=== PATIENT | female | born 1980 | race African-American/Black ===

== ENCOUNTER 2022-09-12 16:47 | Emergency (ER) | payer MEDICAID, SELFPAY ==
[2022-09-12 16:56] VITALS: BP 145/91; PULSE 84; RESP 18; TEMP 36.7; O2SAT 98; BMI 26.6
--- NOTE | 2022-09-12 17:01 | ED.GENADULT ---
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 She feels tired and isn't eating well due to traveling and not having access to medications. MD complaint: elevated blood pressure and blood sugars 300/400 Onset (ago): week(s) (3) Radiation: non-radiation Severity: moderate Quality: dull Relieving factors: none Exacerbating factors: eating Associated symptoms: other (fatigue) Treatments prior to arrival: none Related Data Previous Rx's Medication Instructions Recorded amlodipine 5 mg tablet 5 mg PO DAILY #30 tabs 09/12/22 losartan 50 mg tablet 50 mg PO DAILY #30 tabs 09/12/22 metformin 1,000 mg tablet 1,000 mg PO BID #60 tabs 09/12/22 Allergies Allergy/AdvReac Type Severity Reaction Status Date / Time No Known Allergies Allergy Verified 09/12/22 16:58 Review of Systems Review of Systems: Constitutional : No Fever, No Chills, pos Fatigue ENT/Mouth : No sore throat, No Rhinorrhea Eyes: No Eye Pain, No Swelling, No Redness Cardiovascular : No Chest Pain, No SOB, No Dyspnea on Exertion Respiratory : No Cough, No Sputum Gastrointestinal : No Nausea, No Vomiting, No Diarrhea, No abdominal Pain Genitourinary : No Dysuria, No Urinary Frequency, No Hematuria, Musculoskeletal : No joint pain, No Myalgias, No Joint Swelling Skin : No Skin Lesions, No rash Neuro : No Weakness, No Numbness, No Dizziness, no Headache Psych : No Anxiety/Panic, No Depression All other systems reviewed and are negative [facility] Past Medical History Attestation statement: The following information was validated with the patient. Medical History Diabetes HTN (hypertension) Social History Social History (Updated 09/12/22 @ 19:42 by Tana Turner DO) Alcohol intake: current Alcohol intake frequency: holidays/special occasions only Alcohol type: beer and wine Patient Tobacco Use Status: Never used Tobacco Smoked in Last 30 Days: No Use of substances other than those prescribed or required for medical reasons: No Advance Directives: No Advance Directives Information Provided: No Patient : No Physical Exam ED Vital Signs: Vital Signs - 24 hr 09/12/22 16:56 09/12/22 19:38 Temperature 98.1 F 98.3 F Pulse Rate 84 80 Respiratory Rate 18 18 Blood Pressure 145/91 H 133/98 H Pulse Oximetry 98 97 Oxygen Delivery Method Room Air Room Air BMI result Body Mass Index 26.6 Appearance: Alert. Oriented X3. No acute distress. Eyes: Pupils equal, round and reactive to light. ENT: Pharynx normal. Neck: Normal inspection. Neck supple. CVS: Normal heart rate and rhythm. Pulses normal. Respiratory: No respiratory distress. Breath sounds normal. Abdomen: Soft and non-tender. Skin: Skin warm and dry. Normal skin color. Normal skin turgor. Extremities: No lower extremity edema. No calf ttp Neuro: Oriented X 3. No motor deficit. No sensory deficit. Course Course Course Narrative: This is an RME: Additional HPI, ROS, PE not included below will be deferred to primary provider. This is a 25-muee-vvn-female, with a hx of diabetes and HTN, presenting to the emergency department with complaint of tiredness, weakness, and sweats since today. The half-way took her blood sugar and they noted that it was high - 289. VSS. Plan: Basic labs, POC glucose ordered. Reevaluation(s) Reevaluation #1: SW involved has insurance and [employer]) Medical Decision Making Medical Decision Making [facility] Narrative: 42 yo female with hx of HTN, DM here with c/o elevated BP and blood sugar with minimal symptoms in light of poor diet, stress and lack of medications. I am going to have to involve SW for medications. Her labs are unremarkable I am not sure how she will pay for new medications. No acute emergent needs - just needs new meds. Differential Diagnosis Differential Diagnoses: The differential diagnosis associated with the presentation includes hyperglycemia, DM, DKA Consult Healthcare Provider Management of the patient was discussed with: Garment Steamer Lab Data [facility] Lab Attestation statement: I reviewed the patient's lab results. 09/12/22 17:12 09/12/22 17:12 Labs: Lab Results 09/12/22 09/12/22 09/12/22 Range/Units 17:12 17:12 19:41 WBC 8.3 (4.8-10.8) X10*3/uL RBC 5.29 (4.20-5.50) X10*6/uL Hgb 14.7 (12.0-16.0) g/dl Hct 44.0 (37.0-47.0) % MCV 83.2 (80.0-98.0) fL MCH 27.8 (27.0-33.0) pg MCHC 33.4 (31.0-35.0) g/dl RDW 13.4 (11.0-16.0) % Plt Count 323 (160-400) X10*3/uL MPV 11.7 (9.4-12.3) fL Immature Gran % (Auto) 0.2 (0.0-0.4) % Neut % (Auto) 55.5 (45-73) % Lymph % (Auto) 34.6 (20-40) % Coffee % (Auto) 7.0 (2-11) % Eos % (Auto) 1.9 (0-4) % Baso % (Auto) 0.8 (0-2) % Lymph # (Auto) 2.9 (1.2-4.9) X10*3/uL Coffee # (Auto) 0.6 (0.1-1.2) X10*3/uL Eos # (Auto) 0.2 (0.0-0.4) X10*3/uL Baso # (Auto) 0.1 (0.0-0.2) X10*3/uL Abs Immat Gran (auto) 0.02 (0.00-0.03) X10*3/uL Absolute Neuts (auto) 4.6 (2.0-8.3) x10*3/uL Absolute Nucleated RBC 0.000 (0.0-0.012) X10*3/uL Nucleated RBC % (auto) 0.0 (0.0-0.2) /100WBC Sodium 136 (135-145) mmol/L Potassium 4.6 (3.3-5.1) mmol/L Chloride 102 (96-108) mmol/L Carbon Dioxide 25 (22-29) mmol/L Anion Gap 14 (12-20) BUN 10 (9-16) mg/dL Creatinine 0.88 (0.5-1.4) mg/dL Estim Creat Clear Calc 86.1 Estimated GFR > 60 POC Glucose 268 H (60-115) mg/dL Random Glucose 360 H* (60-115) mg/dL Calcium 10.0 (8.4-10.2) mg/dL Total Bilirubin 0.5 (0.0-1.0) mg/dL Direct Bilirubin 0.1 (0.0-0.5) mg/dL AST 17 (5-31) U/L ALT 37 H (0-31) U/L Alkaline Phosphatase 126 H (39-117) U/L Total Protein 8.0 (6.5-8.0) g/dL Albumin 4.4 (3.5-5.0) g/dL Prescription Management I considered prescription management with: Other (HTN and diabetic medications) Chronic Conditions Patient?s care impacted by: Diabetes Social Determinants Patient?s care significantly limited by Social Determinants of Health including: Low income, Problems related to primary support group, Unemployment and Other Social Determinant of Health Discharge Plan Discharge Clinical Impression: Acute hyperglycemia Hypertension Qualifiers: Hypertension type: unspecified Qualified Code(s): I10 - Essential (primary) hypertension Patient Disposition: Home, Self-Care Instructions: Chronic Hypertension (ED), Diabetic Hyperglycemia (ED) Additional Instructions: deje de stan los 850 mg de metformina. Coma chadd buena dieta para diab?ticos lo mejor que pueda. regrese por fiebre, v?mitos, dolor de pecho o cualquier otra inquietud. stan los medicamentos seg?n lo prescrito. Prescriptions: New metformin 1,000 mg tablet 1,000 mg PO BID Qty: 60 1RF amlodipine 5 mg tablet 5 mg PO DAILY Qty: 30 1RF losartan 50 mg tablet 50 mg PO DAILY Qty: 30 1RF Referrals: Deborah Cheng CNP [Nurse Practitioner] - (any provider call to make appointment) Print Language: Chinese
[2022-09-12 17:22] LABS: MANUAL DIFF FLAG NO
[2022-09-12 17:47] LABS: Alanine Aminotransferase 37 U/L (0-31); Albumin Level 4.4 g/dL (3.5-5.0); Alkaline Phosphatase 126 U/L (39-117); Anion Gap 14 (12-20); Aspartate Amino Transferase 17 U/L (5-31); Bilirubin Direct 0.1 mg/dL (0.0-0.5); Bilirubin Total 0.5 mg/dL (0.0-1.0); Blood Urea Nitrogen 10 mg/dL (9-16); Carbon Dioxide 25 mmol/L (22-29); Chloride 102 mmol/L (96-108); Creatinine Clr Calc Pharmacy 86.1; Estimated Glomerular Filt Rate > 60; Glucose Random 360 mg/dL (60-115); Potassium 4.6 mmol/L (3.3-5.1); Sodium 136 mmol/L (135-145)
[2022-09-12 17:50] LABS: Basophils Absolute Auto 0.1 X10*3/uL (0.0-0.2); Basophils Percent Auto 0.8 % (0-2); Eosinophils Absolute Auto 0.2 X10*3/uL (0.0-0.4); Eosinophils Percent Auto 1.9 % (0-4); Hemoglobin 14.7 g/dl (12.0-16.0); Imm Gran Abs Auto 0.02 X10*3/uL (0.00-0.03); Imm Gran Pct Auto 0.2 % (0.0-0.4); Lymphocytes Absolute Auto 2.9 X10*3/uL (1.2-4.9); Lymphocytes Percent Auto 34.6 % (20-40); Mean Corpuscular HGB Conc 33.4 g/dl (31.0-35.0); Mean Corpuscular Hemoglobin 27.8 pg (27.0-33.0); Mean Corpuscular Volume 83.2 fL (80.0-98.0); Mean Platelet Volume 11.7 fL (9.4-12.3); Monocytes Absolute Auto 0.6 X10*3/uL (0.1-1.2); Neutrophils Absolute Auto 4.6 x10*3/uL (2.0-8.3); Neutrophils Percent Auto 55.5 % (45-73); Platelet Count 323 X10*3/uL (160-400); Red Blood Count 5.29 X10*6/uL (4.20-5.50); Red Cell Distribution Width 13.4 % (11.0-16.0); White Blood Count 8.3 X10*3/uL (4.8-10.8)
[2022-09-12 19:38] VITALS: BP 133/98; PULSE 80; RESP 18; TEMP 36.8; O2SAT 97
[2022-09-12 19:44] LABS: Glucose, Whole Blood 268 mg/dL (60-115)
--- NOTE | 2022-09-12 20:35 | MHC.CM.ED ---
Addendum entered by Mel Henderson 09/12/22 20:56: Pt's arranged an Uber for patient. Pt discharged. Original Note: CM met with patient at the request of Dr. Turner. project inspector used as patient is Wallisian speaking only. Patient [place] been [place] the [place]. Came from [facility] in [place]. Is in [place] on [place]. Her is from [place]. [place] ([phone]). They are living in an emergency mcfp at [facility] in [place] on [address]. Pt has paperwork for [employer], which was active on 09/03/2022. Verified by registration. Patient and have court date in 2024. Pt is a refugee. [place] [employer] given to patient. Referral to [facility] with instructions to call for an appointment. Explained that they speak Wallisian and have a pharmacy there. Dr. Turner will order meds electronically to [facility] on [address] in [place]. Pt is aware that pharmacy is down the street from her mcfp. Contact information given for [facility]. Instructed patient to use her paperwork for [employer], which will pay for the medicine. Also given [employer] cards. CM contact card given if patient has any concerns. Pt RN aware. Pt will be discharged home.
== END 2022-09-12 20:44 | disposition home or self-care (01) ==
PROVIDERS: Physician Assistant Medical; Emergency Provider Emergency Medicine
DX: E11.65 Type 2 diabetes mellitus with hyperglycemia (principal); I10 Essential (primary) hypertension; Z79.84 Long term (current) use of oral hypoglycemic drugs
CPT/HCPCS: 36415; 80048; 80076; 82947; 85025; 99283; 99284

== ENCOUNTER 2023-01-31 13:48 | Outpatient (REF) | payer MEDICAID, OTHER, SELFPAY ==
[2023-01-31 17:48] LABS: Alanine Aminotransferase 31 U/L (0-31); Albumin Level 4.4 g/dL (3.5-5.0); Alkaline Phosphatase 112 U/L (39-117); Anion Gap 12 (12-20); Aspartate Amino Transferase 18 U/L (5-31); Bilirubin Total 0.5 mg/dL (0.0-1.0); Blood Urea Nitrogen 11 mg/dL (9-16); Calcium 10.1 mg/dL (8.4-10.2); Carbon Dioxide 26 mmol/L (22-29); Chloride 104 mmol/L (96-108); Estimated Glomerular Filt Rate > 60; Potassium 4.4 mmol/L (3.3-5.1); Sodium 138 mmol/L (135-145); Total Protein 8.1 g/dL (6.5-8.0)
[2023-01-31 19:49] LABS: Glucose Random 350 mg/dL (60-115)
== END 2023-01-31 13:49 | disposition home or self-care (01) ==
LOC: HO.HHCL 13:48
PROVIDERS: Visit Provider Student in an Organized Health Care Education/Training Program
DX: E11.9 Type 2 diabetes mellitus without complications (principal); Z79.4 Long term (current) use of insulin
CPT/HCPCS: 36415; 80053

== ENCOUNTER 2023-03-20 16:21 | Outpatient (REF) | payer MEDICAID, OTHER, SELFPAY ==
[2023-03-21 19:23] LABS: C. trachomatis RNA TMA NOT DETECTED (NOT DETECTED); N. gonorrhoeae RNA TMA NOT DETECTED (NOT DETECTED)
== END 2023-03-20 16:22 | disposition home or self-care (01) ==
LOC: HO.CHCLNP 16:21
PROVIDERS: Visit Provider Family Medicine
DX: N89.8 Other specified noninflammatory disorders of vagina (principal)
CPT/HCPCS: 36415; 81513; 87491; 87591

== ENCOUNTER 2023-03-21 10:35 | Outpatient (REF) | payer MEDICAID, OTHER, SELFPAY ==
[2023-03-21 14:59] LABS: Cholesterol 103 mg/dL (<200); HDL Cholesterol 46 mg/dL (>40); LDL Cholesterol Calculated 48 mg/dL (<100); Triglycerides 47 mg/dL (<150)
[2023-03-21 15:17] LABS: TSH reflex Free T4 1.28 uIU/mL (0.32-4.0)
[2023-03-21 15:23] LABS: Creatinine Urine 253.99 mg/dL; Microalbum/Creatinine Ratio Ur 27.5 ug/mg cr (<30)
[2023-03-22 08:29] LABS: Follicle Stimulating Hormone 2.1 mIU/mL; Lutenizing Hormone 1.9 mIU/mL
[2023-03-24 03:55] LABS: HIV AB/AG Nonreactive (Nonreactive); HIV Num 1 0.06 S/CO (0.00-0.99); ~HepC Num1 0.08 S/CO (0.00-0.79); ~Hepatitis C Antibody Nonreactive (Nonreactive)
[2023-03-27 21:14] LABS: Estradiol Ultra Sensitive 91 pg/mL
== END 2023-03-21 10:36 | disposition home or self-care (01) ==
LOC: HO.CHCLDS 10:35
PROVIDERS: Visit Provider Family Medicine
DX: Z11.4 Encounter for screening for human immunodeficiency virus [HIV] (principal); Z13.9 Encounter for screening, unspecified; N97.9 Female infertility, unspecified; E11.9 Type 2 diabetes mellitus without complications; Z79.4 Long term (current) use of insulin
CPT/HCPCS: 36415; 80061; 82043; 82570; 82670; 83001; 83002; 84443; 86803; 87389

== ENCOUNTER 2023-03-27 15:39 | Outpatient (REF) | payer MEDICAID, SELFPAY ==
[2023-03-31 21:49] LABS: Anti-Mullerian Hormone-Female 1.59 ng/mL (0.01-2.99)
== END 2023-03-27 15:40 | disposition home or self-care (01) ==
LOC: HO.CHCLDS 15:39
PROVIDERS: Visit Provider Family Medicine
DX: N97.9 Female infertility, unspecified (principal)
CPT/HCPCS: 36415; 82166

== ENCOUNTER 2023-05-20 17:48 | Outpatient (REF) | payer MEDICAID, OTHER, SELFPAY ==
[2023-05-21 15:26] LABS: BV Int Neg Control Negative (Negative); BV Int Pos Control Positive (Positive)
[2023-05-25 11:04] LABS: HPV mRNA E6/E7 rflx Not Detected (Not Detected)
== END 2023-05-20 17:49 | disposition home or self-care (01) ==
LOC: HO.CHCLNP 17:48
PROVIDERS: Visit Provider Advanced Practice Midwife
DX: Z12.4 Encounter for screening for malignant neoplasm of cervix (principal); Z11.51 Encounter for screening for human papillomavirus (HPV); N89.8 Other specified noninflammatory disorders of vagina; R35.0 Frequency of micturition; R31.29 Other microscopic hematuria
CPT/HCPCS: 87086; 87480; 87510; 87624; 87660; 88142

== ENCOUNTER 2023-06-03 17:33 | Outpatient (REF) | payer OTHER, SELFPAY ==
[2023-06-03 18:38] LABS: Appearance Urine Clear; Color Urine Yellow; Glucose Urine UA >=1000 mg/dL (Negative); Leukocyte Esterase Urine Negative (Negative); Nitrite Urine Negative (Negative); PH 5.5 (5.0-9.0); Specific Gravity - Urine >= 1.030 (1.005-1.025); UMIC TRIGGER UACC YES; Urine Blood Negative (Negative); Urine Ketones Negative (Negative); Urine Protein Negative (Neg-Trace)
[2023-06-03 18:44] LABS: Bacteria Urine None Seen (None Seen); Hyaline Casts Urine 0-2 /LPF (0-2); RBC Urine 0-2 /HPF (0-2); Squamous Epithelial Cell Urine 0-2 /HPF (0-2); WBC Urine 0-5 /HPF (0-5)
== END 2023-06-03 17:34 | disposition home or self-care (01) ==
LOC: HO.LNP 17:33
PROVIDERS: Visit Provider Family Medicine
DX: R31.29 Other microscopic hematuria (principal)
CPT/HCPCS: 81001

== ENCOUNTER 2023-06-05 15:36 | Outpatient (AMB) | payer OTHER, SELFPAY ==
--- NOTE | 2023-06-05 15:37 | MHC.OFFVIS ---
Intake Vital Signs 06/05/23 15:44 Height 5 ft 6 in Weight 194 lb BMI 31.3 BP 127/81 Blood Pressure Location Rt brachial Position Sitting Pulse 92 Intake Visit Reasons: right axillary cyst Intake Note: This patient was referred by ARLETH Harris, for an assessment for right axillary cyst. Present for wks. Patient c/o; decreasing in size. Loss Prevention Lead Required: Yes Accompanied by: Self / Same As Patient Allergies No Known Allergies Allergy (Verified 06/05/23 15:42) HPI right axillary cyst HPI Details 42-year-old female referred for a cyst on the right axilla. She says she had an area of swelling, pain and tenderness on the right axilla about 2 weeks ago. She been doing warm compresses to the area and this has decreased significantly in size She says she currently does not have any pain, redness or tenderness. She denies any discharge. She has had no similar problems in the past. [facility] Medical History (Updated 06/05/23 @ 15:53 by Roberto Lynn MD) Obesity Epidermal cyst Umbilical hernia section wound complication Diabetes HTN (hypertension) Social History Alcohol intake: current Alcohol intake frequency: holidays/special occasions only Alcohol type: beer and wine Patient Tobacco Use Status: Never used Tobacco Review of Systems Const Denies chills and Denies fever(s) Card Denies chest pain, Denies dyspnea and Denies dyspnea on exertion Resp Denies cough, Denies dyspnea and Denies dyspnea on exertion GI Denies hematochezia and Denies change in bowel habits Denies hematuria Musc Denies back pain and Denies limited range of motion Neuro Denies focal weakness and Denies convulsions Psych Denies depression and Denies mood swings Physical Exam Const Other: Appears overweight General: comfortable and no acute distress Orientation/consciousness: patient oriented x3 Neck Neck: Yes no lymphadenopathy Resp Auscultation: clear to auscultation bilaterally Cardio Rhythm: regular rhythm GI Palpation (GI): Soft to palpation, nontender and no guarding Skin Other: Very faint residual induration on the right axilla, no fluctuance, no redness, no tenderness Neuro General: patient oriented x3 Assessment & Plan Assessment & Plan (1) Epidermal cyst: Code(s): L72.0 - Epidermal cyst Plan: She has what appears to be an epidermal cyst on the right axilla. This is currently barely palpable. This may have been inflamed 2 weeks ago. There is no fluctuance or significant induration. I explained to her that we do not need to proceed with any I&D nor any excision at this time. However, I told her that if this cyst persists or has symptoms down the line, we can consider doing an excision which can be done in the office under local anesthesia. She understands the plan and is comfortable with this. She says she will follow up on a p.r.n. basis. Coding Level of Care Code New Pt Level 2 (80868) Diagnoses Epidermal cyst L72.0
[2023-06-05 15:44] VITALS: BP 127/81; PULSE 92; BMI 31.3
== END 2023-06-05 15:52 | disposition home or self-care (01) ==
PROVIDERS: Visit Provider Surgery
DX: L72.0 Epidermal cyst (principal)
CPT/HCPCS: 99202

== ENCOUNTER → 2023-06-05 15:36 | Outpatient (BNVA) | payer OTHER, SELFPAY | PROVIDERS: Visit Provider Surgery | DX: L72.0 Epidermal cyst (principal) | CPT/HCPCS: 99202 ==

== ENCOUNTER 2023-10-27 17:44 | Outpatient (REF) | payer OTHER, SELFPAY | END 2023-10-27 17:45 | disposition home or self-care (01) | LOC: HO.CHCLNP 17:44 | PROVIDERS: Visit Provider Registered Nurse | DX: J02.9 Acute pharyngitis, unspecified (principal) | CPT/HCPCS: 87070 ==

== ENCOUNTER 2024-02-16 15:19 | Outpatient (AMB) | payer OTHER, SELFPAY ==
[2024-02-16 15:19] VITALS: BMI 31.0
--- NOTE | 2024-02-16 15:19 | MHC.OFFVIS ---
Vital Signs 02/16/24 15:19 Height 5 ft 6 in Weight 192 lb 0.009 oz BMI 31.0 Intake Visit Reasons: consult Nexplanon removal Intake Note: This patient presents for consult Nexplanon removal. Pt c/o; reports PCP unable to remove nexplanon in office. Outside Residential Sales Professional Required: Yes Outside Residential Sales Professional Language: Mechanical Process Engineer Services: Outside Residential Sales Professional Present (Diane) Outside Residential Sales Professional Name: Diane Information Interpreted: non-clinical & clinical Accompanied by: Self / Same As Patient Allergies No Known Allergies Allergy (Verified 02/16/24 15:21) Medication List - Last Reconciled 02/16/24 by Roberto Lynn MD amlodipine 5 mg PO DAILY losartan 50 mg PO DAILY metformin 1,000 mg PO BID HPI HPI consult Nexplanon removal: Details: 43-year-old female referred for removal of her Nexplanon implant. She says she had it done more than 2 years ago and she says she wants this removed. This was done in [facility] as she had live in the country before. She has no other complaints at this time. She has a known diabetic and also has hypertension. [facility] Medical History Nexplanon in place Obesity Epidermal cyst Umbilical hernia section wound complication Diabetes HTN (hypertension) Surgical History Surgical history unknown Social History Alcohol intake: current Alcohol intake frequency: holidays/special occasions only Alcohol type: beer and wine Patient Tobacco Use Status: Never used Tobacco Review of Systems Const Denies chills and Denies fever(s) Card Denies chest pain, Denies dyspnea and Denies dyspnea on exertion Resp Denies cough, Denies dyspnea and Denies dyspnea on exertion GI Denies hematochezia and Denies change in bowel habits Denies hematuria Musc Denies back pain and Denies limited range of motion Neuro Denies focal weakness and Denies convulsions Psych Denies depression and Denies mood swings Physical Exam Vital Signs: BMI result Body Mass Index 31.0 Const Other: Obese General: comfortable and no acute distress Orientation/consciousness: patient oriented x3 Neck Neck: Yes no lymphadenopathy Resp Auscultation: clear to auscultation bilaterally Cardio Rhythm: regular rhythm GI Palpation (GI): Soft to palpation, nontender and no guarding Neuro General: patient oriented x3 Extrem Other: Difficult to palpate for the implant on the right upper arm Assessment & Plan Assessment & Plan (1) Nexplanon in place: Code(s): Z97.5 - Presence of (intrauterine) contraceptive device Category: Social Hx Plan: She wants this Nexplanon implant removed. I explained the technique of removal of the Nexplanon implant under local anesthesia. I explained the risks including but not limited to bleeding, infections, hematoma, nerve injury, as well as the benefits and alternatives. She understands and wants to proceed Since the implant is difficult to palpate, I am going to send her for an ultrasound to linh this area. Once this is marked, she will come straight to the office so we can proceed with excision under local anesthesia here in the office that same day. She says she understands the plan. Orders: Orders US extremity nonvascular Today Z97.5 - Presence of (intrauterine) contraceptive device Coding Level of Care Code New Pt Level 3 (40246) Diagnoses Nexplanon in place Z97.5
== END 2024-02-16 15:42 | disposition home or self-care (01) ==
PROVIDERS: Visit Provider Surgery
DX: Z30.46 Encounter for surveillance of implantable subdermal contraceptive (principal)
CPT/HCPCS: 99213

== ENCOUNTER → 2024-02-16 15:19 | Outpatient (BNVA) | payer OTHER, SELFPAY | PROVIDERS: Visit Provider Surgery | DX: Z30.46 Encounter for surveillance of implantable subdermal contraceptive (principal) | CPT/HCPCS: 99212 ==

== ENCOUNTER 2024-02-26 15:12 | Outpatient (REF) | payer OTHER, SELFPAY ==
--- NOTE | ~2024-02-26 | US_ITS ---
EXAMINATION: US SOFT TISSUES, RIGHT UPPER ARM CLINICAL INFORMATION: Marking of skin for Nexplanon removal with skin marker. COMPARISON: None available. TECHNIQUE: Ultrasound images were obtained by the blood coordinator to indicate the area of concern in the upper right arm. The blood coordinator marked the Nexplanon implant as requested by referring physician. US/US extremity nonvascular IMPRESSION: Nexplanon implant in the upper right arm marked by the blood coordinator. Electronically signed by: Lavonne Small MD 03/28/2024 07:28 PM MIKAL ESCOTO
== END 2024-02-26 15:13 | disposition home or self-care (01) ==
LOC: HO.US 15:12
PROVIDERS: PCP Family Medicine; Visit Provider Surgery
DX: Z97.5 Presence of (intrauterine) contraceptive device (principal)
CPT/HCPCS: 11982; 76882

== ENCOUNTER 2024-02-26 15:44 | Outpatient (AMB) | payer OTHER, SELFPAY ==
--- NOTE | 2024-02-26 15:45 | A.OFFVIS_ITS ---
Intake Visit Reasons: nexplanon removal Intake Note: Office procedure: Nexplanon removal Sewing Machine Operator Floorperson Required: Yes Sewing Machine Operator Floorperson Services: Sewing Machine Operator Floorperson Present Sewing Machine Operator Floorperson Name: NicolasELIAHayley Information Interpreted: non-clinical & clinical Accompanied by: Self / Same As Patient Allergies No Known Allergies Allergy (Verified 02/26/24 15:45) HPI HPI nexplanon removal: Details: She is here for removal of her Nexplanon implant. She had an ultrasound done earlier this afternoon to have the area marked. [facility] Medical History Nexplanon in place Obesity Epidermal cyst Umbilical hernia section wound complication Diabetes HTN (hypertension) Surgical History Surgical history unknown Social History Alcohol intake: current Alcohol intake frequency: holidays/special occasions only Alcohol type: beer and wine Patient Tobacco Use Status: Never used Tobacco Office Procedures AMB Foreign Body Removal Details: She was in reclining position. The area of the Nexplanon implant in the medial aspect of the right upper arm was prepped and draped. This area had been previously marked using the ultrasound I infiltrated the planned line of incision with lidocaine 1%. I made a short incision with a blade 15 transversely. This was carried down through the full- thickness of the skin and subcutaneous fat. I palpated the area and I could feel the longitudinal fine tubular structure presenting the Nexplanon implant. I therefore gently dissected this area using the hemostat until was able to visualize this implant. I gently and bluntly dissected this with the hemostat and I was able to pull this out completely without difficulty. This was intact I closed the incision with full-thickness nylon 3-0 simple interrupted sutures. Dressings were applied. The procedure was completed. She tolerated the procedure well. There were no immediate complications. Foreign Body Removal Complex: [id number] body removal, complex Procedure code (CPT) selection complete Assessment & Plan Assessment & Plan (1) Nexplanon in place: Code(s): Z97.5 - Presence of (intrauterine) contraceptive device Category: Social Hx Plan: The Nexplanon implant was removed without difficulty. She was given wound care instructions. She will be seen for removal sutures. Coding Level of Care Code Procedure Only Diagnoses Nexplanon in place Z97.5 CPT Codes Details - Foreign body complex: [id number] body removal, complex ([id number])
== END 2024-02-26 16:06 | disposition home or self-care (01) ==
PROVIDERS: PCP Family Medicine; Visit Provider Surgery
DX: Z30.46 Encounter for surveillance of implantable subdermal contraceptive (principal)
CPT/HCPCS: 11982

== ENCOUNTER 2024-05-07 14:44 | Outpatient (REF) | payer MEDICAID, OTHER, SELFPAY ==
--- OUTSIDE RECORDS SUMMARY | 2024-05-07 14:46 | XMS_ITS | Encounter Summary ---
Author Organization [employer] Address [address] [place] [address] Care Team Providers Care Seed Core Operator Name Role Phone Yessica Ricketts MD Primary Care Provider [phone] Encounter Details Date Type Department Care Team (Late Contact Info) Description 04/14/2024 Telephone [facility] [address] [place] [address] Yessica Ricketts MD [address] [place], [place] [phone] Social History Tobacco Use Types Packs/Day Years Used Date Smoking Tobacco: Never Passive Smoke Exposure: Never Smokeless Tobacco: Never Alcohol Use Standard Drinks/Week Comments Yes 0 (1 standard drink = 0.6 oz pur e alcohol) Comments No Sex and Gender Information Value Date Recorded Sex Assigned at Female 01/31/2023 9:55 AM EST Legal Sex Female 12:33 PM EDT Gender Identity Female 01/31/2023 9:55 AM EST Sexual Orientation Don't know 01/31/2023 9: 55 AM EST documented as of this encounter Miscellaneous Notes * Telephone Encounter - Cristo Anderson - 04/14/2024 2:42 PM EST Patient was seen by art educator within the past 6 months and would benefit from a transition to the pharmacy CDTM program. Please send a referral for CDTM - Diabetes to ensure continuity of care. Thank you! documented in this encounter Plan of Treatment Upcoming Encounters Date Type Department Care Team (Late Contact Info) Description 05/13/2024 3:30 PM EST Clinical Support [facility] [address] [place] [address] Kemi Sparks, ETHEL [address] [place] [address] 06/10/2024 2:30 PM EDT Medication Management [facility] [address] [place] [address] Anyi Garcia PharmD [address] [place] [address] documented as of this encounter Visit Diagnoses Not on filedocumented in this encounter Care Teams Seed Core Operator Relationship Specialty Start Date End Date Yessica Ricketts MD [address] [place] [address] PCP - General Family Medicine 03/20/23 documented as of this encounter
--- OUTSIDE RECORDS SUMMARY | 2024-05-07 14:46 | XMS_ITS | Encounter Summary ---
Author Organization [employer] [facility] Address [address] [place] [address] Care Team Providers Care Financial Examiner Name Role Phone Yessica Ricketts MD Primary Care Provider [phone] Anyi Garcia PharmD Unavailable [phone] Encounter Details Date Type Department Care Team (Latest Contact Info) Description 05/06/2024 Travel Social History Tobacco Use Types Packs/Day Years [...] AM EST documented as of this encounter Plan of Treatment Upcoming Encounters Date Type Department Care Team (Late st Contact Info) Description 05/13/2024 3:30 PM EST Clinical Support [facility] DI[facility] [address] [place], [place] [phone] [place] [address] 06/10/2024 2:30 PM EDT Medication Management [facility] MED & PED[facility] [address] [place], [place] [phone] Anyi Garcia PharmD [address] [place] [address] documented as of this encounter Visit Diagnoses Not on filedocumented in this encounter Care Teams Financial Examiner Relationship Specialty Start Date End Date Yessica Ricketts MD [address] [place] [address] PCP - General Family Medicine 03/20/23 Anyi Garcia PharmD [address] [place] [address] Pharmacist Internal Medicine 05/06/24 documented as of this encounter
--- OUTSIDE RECORDS SUMMARY | 2024-05-07 14:46 | XMS_ITS | Encounter Summary ---
Author Organization [employer] [facility] Address [address] [place] [address] Care Team Providers Care Brake Operator Helper Name Role Phone Yessica Ricketts MD Primary Care Provider [phone] Encounter Details Date Type Department Care Team (Latest Contact Info) Description 04/15/2024 Travel Social History Tobacco Use Types Packs/Day [...] Description 05/13/2024 3:30 PM EST Clinical Support [facility] DIABETES/NTRN [address] [place] [address] [place] [address] 06/10/2024 2:30 PM EDT Medication Management [facility] MED & PEDS [address] [place] [address] Anyi Garcia PharmD [address] [place] [address] documented as of this encounter Visit Diagnoses Not on filedocumented in this encounter Care Teams Brake Operator Helper Relationship Specialty Start Date End Date Yessica Ricketts MD [address] [place] [address] PCP - General Family Medicine 03/20/23 documented as of this encounter
--- OUTSIDE RECORDS SUMMARY | 2024-05-07 14:46 | XMS_ITS | Encounter Summary ---
Author Organization [employer] Address [address] [facility] 7t [place] [address] Care Team Providers Care Briquette Operator Name Role Phone Yessica Ricketts MD Primary Care Provider [phone] Reason for Visit * Reason Comments Dental Exam Perio exam Encounter Details Date Type Department Care Team (Late st Contact Info) Description 04/07/2024 2:00 PM EST Office Visit [facility]AL [address] [place] [address] Nicholas Coyne DMD 505 [place] [address] Periodontal disease (Primary Dx) Social History Tobacco Use Types Packs/Day Years [...] AM EST documented as of this encounter Last Filed Vital Signs Vital Sign Reading Time Taken Comments Blood Pressure 140/90 04/07/2024 2:12 PM EST Pulse - - Temperature - - Respiratory Rate - - Oxygen Saturation - - Inhaled Oxygen Concentration - - Weight - - Height - - Body Mass Index - - documented in this encounter Progress Notes * Nicholas Coyne DMD - 04/07/2024 2:00 PM EST Dental procedures in this visit D0180 - COMPREHENSIVE PERIODONTAL EVALUATION - NEW OR ESTABLISHED PATIENT (Completed) Service provider: Nicholas Coyne DMD Billing provider: Nicholas Coyne DMD [id number] - ADJUNCTIVE GENERAL SERVICES - PROFESSIONAL VISITS - CASE PRESENTATION, SUBSEQUENT TO DETAILED AND EXTENSIVE TREATMENT PLANNING (Completed) Service provider: Nicholas Coyne DMD Billing provider: Nicholas Coyne DMD Patient ID: Phyllis Bee is a 43 y.o. female. Time Out: Timeout Date: 04/07/24 (perio exam), Timeout Time: 1411 Location: [facility] Tooth: all Procedure: Exam Verified the above with patient, habilitation assistant, and provider. Confirmed via patient's chart, intraorally and by radiographs. Quality Control Projectionist: Yes. Language: Somali. Quality Control Projectionist's Name: Leslee REGULATORY COMPLIANCE SPECIALIST Chief Complaint Patient presents with Dental Exam Perio exam Medical Hx: Vitals: Blood pressure 140/90. Patient presents for periodontal F/U HPI: SRPs and OHI completed 1 month ago, 03/10/24 Pt states she is doing better with oral hygiene Periodontal probing completed today Note multiple areas of deep probing depths, generalized BOP Note multiple areas where probing is deeper today than last visit with hygienist It is possible that calculus was hit when probing initially which gave artificially shallow results Informed pt of findings and discussed periodontal health. Recommend evaluation and treatment by vertical borer. Discussed possible need for open flap debridement, osseous recontouring, and apically positioned flap. Referral made to [facility]. Discussed with patient that treatment will be out of pocket and to inquire at office the costs. Pt understood. Radiographs to be sent via email to Perio office. Patient tolerated procedure well. All questions answered. Dismissed in good condition. NV: Recare Well Flow Operator: Leslee Real Dentist: Nicholas Coyne DMD documented in this encounter Plan of Treatment Upcoming Encounters Date Type Department Care Team (Late st Contact Info) Description 05/13/2024 3:30 PM EST Clinical Support [facility] DI[facility] [address] [place], [place] [phone] Kemi Sparks, RD [address] [place], [place] [phone] 06/10/2024 2:30 PM EDT Medication Management [facility] MED & PEDS [address] [place] [address] Anyi Garcia, RobbiD [address] [place] [address] documented as of this encounter Procedures Procedure Name Priority Date/Time Associated Diagnosis Comments COMPREHENSIVE PERIODONTAL EVALUATION - NEW OR ESTABLISHED PATIENT Routine 04/07/2024 2:00 PM EST Periodontal disease CASE PRESENTATION, DETAILED AND EXTENSIVE TREATMENT PLANNING Routine 04/07/2024 2:00 PM EST Periodontal disease documented in this encounter Visit Diagnoses Diagnosis Periodontal disease- Primary Unspecified gingival and periodontal disease documented in this encounter Care Teams Briquette Operator Relationship Specialty Start Date End Date Yessica Ricketts MD [address] [place] [address] PCP - General Family Medicine 03/20/23 documented as of this encounter
--- OUTSIDE RECORDS SUMMARY | 2024-05-07 14:46 | XMS_ITS | Encounter Summary ---
Author Organization [employer] Address [address] [facility] [address] 7[address] [place] [address] Care Team Providers Care Parts Chaser Name Role Phone Yessica Ricketts MD Primary Care Provider [phone] Encounter Details Date Type Department Care Team (Latest Contact Info) Description 04/15/2024 2:30 PM EST Clinical Support [facility] DIABETES/NTRN [address] [place], [place] [phone] Kemi Sparks RD [address] [place], [place] [phone] Class 1 obesity without serious comorbidity with body mass index (BMI) of 31.0 to 31.9 in adult, unspecified obesity type (Primary Dx); Type 2 diabetes mellitus without complication, with long-term current use of insulin ([facility]) Social History Tobacco Use Types Packs/Day Years [...] Sign Reading Time Taken Comments Blood Pressure - - Pulse - - Temperature - - Respiratory Rate - - Oxygen Saturation - - Inhaled Oxygen Concentration - - Weight 87.4 kg (192 lb 9.6 oz) 04/20/2024 1:05 P M EST Height 167.6 cm (5' 6 ) 04/20/2024 1:05 PM EST Body Mass Index 31.09 04/20/2024 1:05 PM EST documented in this encounter Progress Notes * Kemi Sparks RD - 04/15/2024 2:30 PM EST In Person Visit Medical Diagnosis: E66.9 Obesity E11.9, Z79.4 Type 2 diabetes mellitus without complication, with long-term current use of insulin Anthropometrics: Ht:5' 6 (1.676 m), Wt:192 lb 9.6 oz (87.4 kg), BMI: Body mass index is 31.09 kg/m??. Assessment: Patient (Pt) accepted nutrition education assessment appointment with RD. RD took Pt's weight. Weight revealed a slight increase of 2.6 pounds. [employer] chairman of the board, Valentín [id number] took 24 hour recall/ typical daily intake from Pt. Intake revealed Pt had swapped out rice for quinoa and having one cup instead of 1/3 cup as she wastaught. Pt thought that it was healthier that she could have more. RD explained that it is a grain and all grain cooked are 1/3 cup. Pt then realized that she was eating too much when she had quinoa.RD smiled and said, Yes. Pt agreed to only have 1/3 cup when she is having quinoa. In addition, Pt was not having EVOO on her all of her salads. RD highly suggested that Pt did. Along with EVOO, RD suggested to put some apple cider vinegar on the salad as well. Pt told RD that she has been using apple cider vinegar on her salads- sometimes. With these two changes, EVOO, apple cider vinegar and portion control quinoa amount, Pt should havefurther results and keep blood sugars down as well. A follow up appointment is scheduled in the third week of April 2024. 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 Food Intolerance: Dairy- lactose Food Preferences: Armenian yogurt, sweet cereals, breads, fruit cup/ canned, eggs, cheeses, sausages, beef, fish- tilapia, pork, liver, shrimp, Coke beverage, cherries, potatoes, lettuce, tomatoes, cucumbers, apples, passion fruit, ice cream, tomato sauces, gravies, rice, pasta, fried plantains, peanuts, pepperoni pizza, SF beverage= Ice Food Dislikes: Pt is not crazy about vegetables. Frequency of Eating Out/ Restaurant: Not a norm; pizza 1-2 x's per month Yakut food; 1 time or so a month Who Cooks?: Patient How much caffeine?: denies use; although, Pt does like the beverage Coke which has caffeine in it. Pt told RD that she has not been drinking Coke for sometime now. How much sugary beverages?: None; drinks sugar free beverages Diet History: Breakfast: Eg Water: 1+ cups Fruit: 1/2 cup Snack: None Water: 1 cup Lunch: Protein: 6+ oz. Green beans: 1/2 cup Potato: 1/2 cup Fresh salad: 3 cups Water or Ice (beverage drink): 1-2+ cups Snack: none Dinner: Quinoa: 1 cup Protein: 6+ oz. Fresh salad: 2-3 cups Water or Ice (beverage drink): 1-2 cups Snack: none Nutrition Diagnosis: NI-5.8.3 Inappropriate intake of types of carbohydrate, such as: rice, sugary cereals, pizza, ice cream to name few, related to food and knowledge deficit as evidence by 24 hour recall/ typical dailyintake, BMI >31, and blood sugars at 236 and a A1C% at 6.5 on 11/06/2023. Prior, 06/30/2023, A1C% at 12.1. Nutrition Intervention: RD suggested portion control amount for quinoa: 1/3 cup- cooked; add EVOO and apple cider vinegar on all salads. Pt agreed to work on these suggestions. Goals: Eat two carbohydrates for breakfast, lunch and dinner Eat one carbohydrate for mid-morning and mid-afternoon snacks Eat a fresh salad > one cup at both lunch and dinner Eat protein and fats as advised in meal plan Drink water as beverage of choice-> 6-8 glasses and/ or Crystal Light/ Sugar free Exercise at least 30 minutes per day Use extra virgin olive oil(EVOO) after cooking on foods-> don't cook with EVOO Monitoring and Evaluation: Indicator Criteria Adherence frequency of eating, portion controls, carbohydrate exchanges, protein intake Weight Loss BMI, exercise routine and frequency Glucose control A1C, blood sugars Lipid control Lipid panel Provider: Kemi Sparks RD, LDN documented in this encounter Plan of Treatment Upcoming Encounters Date Type Department Care Team (Late st Contact Info) Description 05/13/2024 3:30 PM EST Clinical Support [facility] DI[facility]ET[facility] [address] [place] [address] [place] [address] 06/10/2024 2:30 PM EDT Medication Management [facility] [address] [place], [place] [phone] Anyi Garcia PharmD [address] [place], [place] [phone] documented as of this encounter Visit Diagnoses Diagnosis Class 1 obesity without serious comorbidity with body mass index (BMI) of 31.0 to 31.9 in adult, unspecified obesity type- Primary Type 2 diabetes mellitus without complication, with long-term current use of insulin ([facility]) documented in this encounter Care Teams Parts Chaser Relationship Specialty Start Date End Date Yessica Ricketts MD [address] [place], [place] [phone] PCP - General Family Medicine 03/20/23 documented as of this encounter
--- OUTSIDE RECORDS SUMMARY | 2024-05-07 14:46 | XMS_ITS | Encounter Summary ---
Author Organization [employer] Address [address] [facility] 7t [place] [address] Care Team Providers Care Lands Resource Manager Name Role Phone Yessica Ricketts MD Primary Care Provider [phone] Reason for Referral * Consultation (Routine) - Authorized Specialty Diagnoses / Procedures Referred By Contac t Referred To Contact Pharmacy Diagnoses Type 2 diabetes mellitus without complication, with long-term current use of insulin (CMS/HCC) Glenny Arreola MD [address] [place] [address] Phone: tel: fax: Referral ID Status Reason Start Date Expiration Date Visits Requested Visits Authorized [id number] Authorized Consult and Treat 04/19/2024 04/19/2025 6 6 Encounter Details Date Type Department Care Team (Late st Contact Info) Description 04/19/2024 Orders Only [facility] [address] [place] [address] Glenny Arreola MD [address] [place], [place] [phone] Type 2 diabetes mellitus without complication, with long-term current use of insulin (CMS/HCC) (Primary Dx) Social History Tobacco Use Types [...] Description 05/13/2024 3:30 PM EST Clinical Support [facility] DIABETES/NTRN 505 [place] [address] Kemi Sparks, RD 230 [place] [address] 06/10/2024 2:30 PM EDT Medication Management [facility] MED & PEDS [address] [place], [place] [phone] Anyi Garcia PharmD [address] [place], [place] [phone] Scheduled Referrals Name Type Priority Associated Diagnoses Orde r Schedule Referral to Pharmacy CDTM Outpatient Referral Routine Type 2 diabetes mellitus without complication, with long-term current use of insulin (CMS/HCC) Ordered: 04/19/2024 documented as of this encounter Visit Diagnoses Diagnosis Type 2 diabetes mellitus without complication, with long-term current use of insulin (CMS/HCC)- Primary documented in this encounter Care Teams Lands Resource Manager Relationship Specialty Start Date End Date Yessica Ricketts MD [address] [place], [place] [phone] PCP - General Family Medicine 03/20/23 documented as of this encounter
--- OUTSIDE RECORDS SUMMARY | 2024-05-07 14:46 | XMS_ITS | Encounter Summary ---
Author Organization [employer] Address [address] [facility] [address] 7[address] [place] [address] Care Team Providers Care Automatic Wheel Line Operator Name Role Phone Yessica Ricketts MD Primary Care Provider [phone] Encounter Details Date Type Department Care Team (Late Contact Info) Description 04/14/2024 Telephone [facility] MEDICINE [address] [place], [place] [phone] Yessica Ricketts MD [address] [place], [place] [phone] Social History Tobacco Use Types Packs/Day Years [...] Telephone Encounter - Cristo Anderson - 04/14/2024 2:40 PM EST Patient was seen by health educator within the past 6 months and would benefit from a transition to the pharmacy CDTM program. Please send a referral for CDTM - Diabetes to ensure continuity of care. Thank you! documented in this encounter Plan of Treatment Upcoming Encounters Date Type Department Care Team (Late Contact Info) Description 05/13/2024 3:30 PM EST Clinical Support [facility] DIABETES/NTRN [address] [place], [place] [phone] Kemi Sparks, ETHEL [address] [place] [address] 06/10/2024 2:30 PM EDT Medication Management [facility] MED & PEDS [address] [place] [address] Anyi Garcia PharmD 230 [place] [address] documented as of this encounter Visit Diagnoses Not on filedocumented in this encounter Care Teams Automatic Wheel Line Operator Relationship Specialty Start Date End Date Yessica Ricketts MD [address] [place] [address] PCP - General Family Medicine 03/20/23 documented as of this encounter
--- OUTSIDE RECORDS SUMMARY | 2024-05-07 14:46 | XMS_ITS | Encounter Summary ---
Author Organization [employer] Address [address] [facility] [address] 7t [place] [address] Care Team Providers Care Promotions Executive Producer Name Role Phone Yessica Ricketts MD Primary Care Provider [phone] Encounter Details Date Type Department Care Team ([facility] Contact Info) Description 04/20/2024 Telephone [facility] MEDICINE [address] [place] [address] Yessica Ricketts MD [address] [place], [place] [phone] Social History Tobacco Use Types Packs/Day Years [...] * Telephone Encounter - Cristo Anderson - 04/20/2024 10:24 AM EST Pharmacy [facility] attempted outreach call on 04/20/24 for CDTM - Diabetes appointment; however, unable to reach patient. LVM for patient to contact Cristo Anderson at [phone]. documented in this encounter Plan of Treatment Upcoming Encounters Date Type Department Care Team (Late Contact Info) Description 05/13/2024 3:30 PM EST Clinical Support [facility] DIABETES/NTRN [address] [place], [place] [phone] Kemi Sparks, ETHEL [address] [place] [address] 06/10/2024 2:30 PM EDT Medication Management [facility]ED[facility] [address] [place] [address] Anyi Garcia PharmD [address] [place] [address] documented as of this encounter Visit Diagnoses Not on filedocumented in this encounter Care Teams Promotions Executive Producer Relationship Specialty Start Date End Date Yessica Ricketts MD [address] [place] [address] PCP - General Family Medicine 03/20/23 documented as of this encounter
--- OUTSIDE RECORDS SUMMARY | 2024-05-07 14:47 | XMS_ITS | Encounter Summary ---
Author Organization [employer] Address [address] [facility] 7t [place] [address] Care Team Providers Care Die Casting Machine Setter Name Role Phone Yessica Ricketts MD Primary Care Provider [phone] Anyi Garcia PharmD Unavailable [phone] Reason for Visit * Reason Comments Med Refill Encounter Details Date Type Department Care Team ([facility] st Contact Info) Description 09/30/2023 Refill [facility] [address] [place], [place] [phone] Debbie Luna MD [address] [place], [place] [phone] Social History Tobacco Use Types Packs/Day Years Used Date Smoking Tobacco: Never Passive Smoke Exposure: Never Smokeless Tobacco: Never Comments No Sex and Gender Information Value Date Recorded Sex Assigned at Female 01/31/2023 9:55 AM EST Legal Sex Female 12:33 PM EDT Gender Identity Female 01/31/2023 9:55 AM EST Sexual Orientation Don't know 01/31/2023 9: 55 AM EST documented as of this encounter Miscellaneous Notes * Telephone Encounter - Elier Montes - 10/03/2023 2:56 PM EDT Tc from patient requesting status in regards to the message below * Telephone Encounter - Lise Arroyo - 10/01/2023 3:37 PM EDT Tc from pt requesting a refill for losartan (Cozaar) 100 MG tablet documented in this encounter Plan of Treatment Upcoming Encounters Date Type Department Care Team (Late st Contact Info) Description 05/13/2024 3:30 PM EST Clinical Support [facility] DIABETES/NTRN [address] [place] [address] Kemi Sparks, ETHEL [address] [place] [address] 06/10/2024 2:30 PM EDT Medication Management [facility] MED & PEDS [address] [place], [place] [phone] Anyi Garcia, PharmD 230 [place] [address] documented as of this encounter Visit Diagnoses Not on filedocumented in this encounter Care Teams Die Casting Machine Setter Relationship Specialty Start Date End Date Yessica Ricketts MD [address] [place] [address] PCP - General Family Medicine 03/20/23 Anyi Garcia, PharmD [address] [place] [address] Pharmacist Internal Medicine 05/06/24 documented as of this encounter
--- OUTSIDE RECORDS SUMMARY | 2024-05-07 14:47 | XMS_ITS | Encounter Summary ---
Author Organization [employer] Address [address] [facility] [address] 7t [place] [address] Care Team Providers Care Turner Machine Operator Name Role Phone Yessica Ricketts MD Primary Care Provider [phone] Anyi Garcia PharmD Unavailable [phone] Reason for Visit * Reason Onset Date Comments Medication Question 06/05/2023 Encounter Details Date Type Department Care Team ([facility] st Contact Info) Description 06/05/2023 Telephone [facility] MEDICINE [address] [place] [address] Yessica Ricketts MD [address] [place], [place] [phone] Medication Question Social History Tobacco Use Types Packs/Day Years [...] encounter Miscellaneous Notes * Telephone Encounter - Digna Christianson RN - 06/11/2023 2:35 PM EDT Placed call to [facility] pharmacy regarding message below. Pharmacy states insurance is not covering Basaglar and will only accept Lantus Solostar. Placed call to [facility] pharmacy who said they received the lantus Solostar rx and is ready for sheepskin pickler. LVM to pt instructing that [facility] pharmacy has insulin rx ready for sheepskin pickler. Pt to f/u PRN. * Telephone Encounter - Mireya Tim 06/11/2023 10:09 AM EDT Tc from pt calling in regards to message above. States she communicated with pharmacy and was told they do not have insulin. Pt is working, would like a call after 3 PM. Please contact pt at [phone] (Indian) * Telephone Encounter - Wing Deric RN - 06/05/2023 4:34 PM EDT Tc to pt regarding refill using [employer] [place], [place] [id number]. Pt will try to sheepskin pickler refill today and will call back if there is a problem. Pt verbalizes understanding and agreement with plan. * Telephone Encounter - Agustin Harrell - 06/05/2023 4:18 PM EDT Pt returning call * Telephone Encounter - Wing Deric RN - 06/05/2023 10:50 AM EDT Tc to [facility] pharmacy. Refill was ordered. Used [employer] [place], [place] [id number], unable to reach pt at [phone]. Inspector Mult[employer] Lens left message for pt to call back. Tried [phone], someone pickedup but then hung up. * Telephone Encounter - Elier Montes - 06/05/2023 10:00 AM EDT Tc from patient calling to inform the Provider the medication insulin glargine (Basaglar KwikPen) 100 UNIT/ML pen will not be filled due to the pharmacy does not have in stock documented in this encounter Plan of Treatment Upcoming Encounters Date Type Department Care Team (Late st Contact Info) Description 05/13/2024 3:30 PM EST Clinical Support [facility] DIABETES/NTRN [address] [place] [address] [place] [address] 06/10/2024 2:30 PM EDT Medication Management [facility] MED & PEDS [address] [place], [place] [phone] Anyi Garcia PharmD [address] [place] [address] documented as of this encounter Visit Diagnoses Not on filedocumented in this encounter Care Teams Turner Machine Operator Relationship Specialty Start Date End Date Ysesica Ricketts MD [address] [place] [address] PCP - General Family Medicine 03/20/23 Anyi Garcia PharmD [address] [place] [address] Pharmacist Internal Medicine 05/06/24 documented as of this encounter
--- OUTSIDE RECORDS SUMMARY | 2024-05-07 14:47 | XMS_ITS | Encounter Summary ---
Author Organization [employer] Address 75 [facility] 7t [place] [address] Care Team Providers Care Diesel Fleet Mechanic Name Role Phone Yessica Ricketts MD Primary Care Provider [phone] Anyi Garcia PharmD Unavailable [phone] Reason for Visit * Reason Comments Med Refill Encounter Details Date Type Department Care Team (Late Contact Info) Description 10/03/2023 Refill [facility] [address] [place], [place] [phone] Debbie Luna MD [address] [place], [place] [phone] Social History Tobacco Use Types Packs/Day Years [...] Description 05/13/2024 3:30 PM EST Clinical Support [facility] DIABETES/NTRN [address] [place] [address] [place] [address] 06/10/2024 2:30 PM EDT Medication Management [facility] MED & PEDS [address] [place] [address] Anyi Garcia, PharmD [address] [place] [address] documented as of this encounter Visit Diagnoses Not on filedocumented in this encounter Care Teams Diesel Fleet Mechanic Relationship Specialty Start Date End Date Yessica Ricketts MD [address] [place] [address] PCP - General Family Medicine 03/20/23 Anyi Garcia PharmD [address] [place] [address] Pharmacist Internal Medicine 05/06/24 documented as of this encounter
--- OUTSIDE RECORDS SUMMARY | 2024-05-07 14:47 | XMS_ITS | Clinical Summary ---
Author Organization [employer] Address [address] [facility] [address] [place] [address] Care Team Providers Care Heater Operator Helper Name Role Phone Yessica Ricketts MD Primary Care Provider [phone] Anyi Garcia PharmD Unavailable [phone] Allergies No known active allergies Medications Blood Glucose Monitoring Suppl (Blood Glucose Monitor System) w/Device kitIndications:T ype 2 diabetes mellitus without complication, with long-term current use of insulin (CMS/HCC) 1 Units 2 times daily. Please provide freestyle 1 kit Active dulaglutide (Trulicity) 4.5 MG/0.5ML solution pen-injectorIndi cations:Type 2 diabetes mellitus without complication, with long-term current use of insulin (CMS/HCC) Inject 4.5 mg under the skin 1 (one) time per week. 4 each Active metFORMIN (Glucophage) 1000 MG tablet Take 1 tablet (1,000 mg) by mouth in the evening. 90 tablet 3 024 2024 Active ammonium lactate (Amlactin) 12 % cream APPLY TOPICALLY TO THE AFFECTED AREA(S) EVERY DAY DIRECTED FOR DRY SKIN 385 g Active glucose blood (FREESTYLE LITE) test strip USE DIRECTED TO TEST BLOOD SUGAR TWICE DAILY AT NOON AND IN THE EVENING 100 strip 11 Active Lancets (Unilet Micro-Thin 33G) misc USE DIRECTED TO TEST BLOOD SUGAR TWICE DAILY AT NOON AND IN THE EVENING 100 each Active Additional Information Patient not taking.Reported on 04/07/2024 multivitamin () 27-0.8 MG tablet Take 1 tablet by mouth Once per day. 30 tablet 11 Active Alcohol Swabs 70 % pads Use to test blood sugar BID times daily 100 each 11 024 Active Additional Information Patient not taking.Reported on 04/07/2024 NIFEdipine XL (Procardia XL) 60 MG 24 hr tabletIndication s:Hypertension, unspecified type Take 1 tablet (60 mg) by mouth Once per day. Do not crush, chew, or split. 90 tablet 3 025 Active etonogestrel-elu ting 68 mg contraceptive implantIndicatio ns:Contraceptive Therapy 1 each by Implant route 1 (one) time. Inserted at outside office 023 2024 Discontinued(M ed list cleanup (will not trigger notification to Pharmacy)) Lancets misc Use to test blood sugar BID times daily 100 each 024 2024 Discontinued(D uplicate order (will not trigger notification to Pharmacy)) Blood Glucose Monitoring Suppl ([employer] Lulu Lite) w/Device kit Use to test blood sugar BID 1 kit 024 2024 Discontinued(D uplicate order (will not trigger notification to Pharmacy)) pen needle 32G x 4 mm misc Use as instructed 100 each 11 024 2024 Discontinued(M ed list cleanup (will not trigger notification to Pharmacy)) losartan (Cozaar) 100 MG tablet Take 1 tablet (100 mg) by mouth Once per day. 90 tablet 1 024 2024 Discontinued(O ther) amLODIPine (Norvasc) 10 MG tablet Take 1 tablet (10 mg) by mouth Once per day. 30 tablet 11 024 2024 Discontinued(A lternate therapy) Active Problems Problem Noted Date Diagnosed Date Encounter for surveillance o f Nexplanon subdermal contraceptive 01/27/2024 Assessment & Plan (01/28/2024 9:48 AM EST): Device was difficult to confirm location during palpation. Ordering imaging to verify location before removal. Referral to Gen/surg for further evaluation. Vaginal discharge 03/20/2023 Assessment & Plan (03/20/2023 1:53 PM EST): Patient will be provided with SureSwab, so it can be sent for testing. Infertility, female 03/20/2023 Assessment & Plan (03/20/2023 1:54 PM EST): Patient that presented visit with concerns of infertility will be sent for labs for further evaluation. Type 2 diabetes mellitus wit hout complication, with long-term current use of insulin 02/02/2023 Assessment & Plan (01/12/2024 4:22 PM EDT): DM is controlled at 5.4%. Discussed medications and refills as needed. Pt declined influenza immunization today. Relevant Medications Alcohol swabs 70% pads Glucose Blood (Freestyle Lite) Test Strips Lancets ( Unilet Micro-Thin 33 G ) [facility] Assessment & Plan (11/07/2023 4:04 AM EDT): A1C: 6.5 Glucose :236 -Uncontrolled. Fasting blood sugar readings were around 129 -130. -Continue Insulin as previously prescribed -Dulaglutide (Trulicity) was increased to 4.5 MG/0.5ML solution pen-injector -F/u in December Assessment & Plan (07/01/2023 12:40 PM EDT): Continue to monitor blood glucose and notate for next visit. Discontinue previous medication and begin Trulicity 3MG and Lantus 100 unit/ml. F/u in one month. Relevant Medications: Dulaglutide (Trulicity) 3 MG/0.5 ML solution pen injector Insulin Glargine (Lantus) 100 UNIT/ML injection Assessment & Plan (06/03/2023 10:57 PM EDT): Uncontrolled: A1C levels are above normal at 11% and glucose at 365 today. As a result, patient was recommended to check glucose levels every 3 days. Increased dosage of Trulicity to 1.5 mg. Due to insurance coverage Lantus is no longer covered but prescribed Basaglar 18 UNITS. Refilled rest of meds for glucose. Advised to bring levels upon next office visit. F/U in 3 weeks. Future Appointments Date Time Provider Department Center 06/30/2023 4:00 PM Yessica Ricketts MD [facility] 07/17/2023 2:00 PM Marjan Toribio OD [facility] Assessment & Plan (03/20/2023 1:53 PM EST): Uncontrolled: A1C levels are above normal. As a result, patient was recommended to check glucose levels every 3 days, and increase Lantus 2UNITS if levels are above 130. In addition, patient will be provided with Trulicity and Glucose monitor. Advised to bring levels upon next office visit. Furthermore, will be sent for labs. Assessment & Plan (02/02/2023 1:20 PM EST): fingerstick today : Glucose 500, ketones neg,nitrates and LE neg , Hb1AC 12.9, Glucose 391 -resume meds today including insulin 10 u of lantus -received here 5 u of lispro -advised to check CBGs in fasting and 2 h after biggest meal and to take readings to apt w new PCP -will do chem today Hypertension 02/02/2023 Assessment & Plan (01/28/2024 9:47 AM EST): Will incr dose of amlodipine to 10 mg, discussed with patient contraindication of use of losartan with . At this moment when patient started TTC will need to switch to either nifedipine or labetalol which is safer in . Also needs to switch GLP-1 to insulin although prelim studies are encouraging of using GLP-1 still not approved for used in . SHYANN. 2023;331(4):280. doi:10.1001/shyann.2023.13981 Assessment & Plan (02/02/2023 1:21 PM EST): Elevated BP here today -off her BP meds -resuming today amlodipine and losartan -to f w PCP next month to start care Obesity (BMI 30.0-34.9) 02/02/2023 Assessment & Plan (01/27/2024 11:16 AM EST): Discussed with Pt about lifestyle modifications and weight reduction to control BP. Increased Amlodipine to 10 mg. Referral to Bariatric Surgery. Follow up with nurse for recheck of BP in one month. Relevant Medications Amlodipine (Norvasc) 10 mg tablet Assessment & Plan (11/07/2023 3:59 AM EDT): Discussed calorie deficit, recommended reduction of 20-30% of maintenance calories; hotel receptionist referral offered. Recommended to decrease soda and sugary beverage consumption. Recommended at least 20 g per meal of protein to assist with satiety. Recommended at least 150 min/week of moderate intensity exercise. Encounters Date Type Department Care Team Description 05/06/2024 Travel 04/20/2024 Telephone [facility] MEDICINE [address] [place] [address] [phone] Yessica Ricketts MD 04/19/2024 Orders Only [facility] [address] [place] [address] [phone] Glenny Arreola MD Type 2 diabetes mellitus without complication, with long-term current use of insulin (CMS/HCC) (Primary Dx) 04/15/2024 2:30 PM EST Clinical Support [facility] DI[facility]/NTR[facility] [address] [phone] K[address] Class 1 obesity without serious comorbidity with body mass index (BMI) of 31.0 to 31.9 in adult, unspecified obesity type (Primary Dx); Type 2 diabetes mellitus without complication, with long-term current use of insulin (CMS/HCC) 04/15/2024 Travel 04/14/[address] [address] Yessica Ricketts MD 04/14/[address] [phone] Yessica Ricketts MD 04/07/2024 2:00 PM EST Office Visit [facility] ADULT DENTAL [address] [place], [place] [phone] Nicholas Coyne DMD Periodontal disease (Primary Dx) 03/15/2024 1:00 PM EST Telemedicine [facility] [address] [phone] Cassie Kimball, OKSANA Type 2 diabetes mellitus without complication, without long-term current use of insulin (CMS/HCC) 03/15/2024 Travel 03/11/2024 2:30 PM EST Clinical Support [facility] [address] [place] [address] Type 2 diabetes mellitus without complication, with long-term current use of insulin (CMS/HCC) (Primary Dx); Obesity with body mass index of 30.0-39.9 03/11/2024 1:00 PM EST Telemedicine [facility] DI[facility]ET[facility]/NUTRITION [address] [place] [address] Cassie Kimball RN Type 2 diabetes mellitus with hyperglycemia, without long-term current use of insulin (CMS/HCC); Type 2 diabetes mellitus without complication, without long-term current use of insulin (CMS/HCC) 03/11/2024 Travel 03/10/2024 2:30 PM EST Office Visit [facility] ADULT [facility] [address] [place] [address] Nicholas Coyne DMD Periodontal disease (Primary Dx) 03/09/2024 1:00 PM EST Telemedicine [facility] [address] [place] [address] Cassie Kimball RN Type 2 diabetes mellitus without complication, without long-term current use of insulin (CMS/HCC) 03/09/2024 Travel 03/04/2024 1:00 PM EST Telemedicine [facility]NUTRITION [address] [place] [address] Cassie Kimball RN Type 2 diabetes mellitus without complication, without long-term current use of insulin (CMS/HCC) 03/04/2024 Travel 03/02/2024 2:00 PM EST Telemedicine [facility] [address] [place] [address] Cassie Kimball RN Type 2 diabetes mellitus without complication, without long-term current use of insulin (CMS/HCC) 03/02/2024 Travel 02/26/2024 10:00 AM EST Telemedicine [facility] DI[facility]ET[facility]/NUTRITION [address] [place] [address] Cassie Kimball RN Type 2 diabetes mellitus without complication, without long-term current use of insulin (CMS/HCC) 02/26/2024 Orders Only [facility] External Provider, [facility] 02/26/2024 Travel 02/24/2024 3:00 PM EST Clinical Support [facility] MED & PEDS [address] [place] [address] Pedro Cook, [place] Hypertension, unspecified type 02/24/2024 1:00 PM EST Telemedicine [facility] [address] [place] [address] Cassie Kimball RN Type 2 diabetes mellitus without complication, without long-term current use of insulin (CMS/HCC) 02/24/2024 Travel 02/17/2024 3:30 PM EST Telemedicine [facility] [address] [place] [address] Cassie Kimball RN Type 2 diabetes mellitus with hyperglycemia, with long-term current use of insulin (CMS/[facility]) 02/17/2024 Travel 02/12/2024 2:30 PM EST Clinical Support [facility] [address] [place], [place] [phone] Kemi Sparks, ETHEL Class 1 obesity due to excess calories with serious comorbidity and body mass index (BMI) of 31.0 to 31.9 in adult (Primary Dx); Type 2 diabetes mellitus without complication, with long-term current use of insulin (CMS/HCC) 02/12/2024 11:00 AM EST Telemedicine [facility] DI[facility]ET[facility]NUTRITION [address] [facility] [place], [place] [phone] Cassie Kimball, OKSA[place] Type 2 diabetes mellitus with hyperglycemia, with long-term current use of insulin (CMS/HCC) 02/12/2024 Travel 02/11/2024 2:00 PM EST Office Visit [facility] ADULT DENTAL [address] [place] [address] Nicholas Coyne DMD Periodontal disease (Primary Dx) 02/10/2024 2:00 PM EST Telemedicine [facility] [address] [place] [address] Cassie Kimball RN Type 2 diabetes mellitus with hyperglycemia, without long-term current use of insulin (CMS/[facility]) 02/10/2024 Travel 02/09/2024 Travel 02/05/2024 11:30 AM EST Telemedicine [facility] DIABETES/NUTRITION [address] [place] [address] Cassie Kimball, [place]SA[place] Type 2 diabetes mellitus with hyperglycemia, with long-term current use of insulin ([facility]) from Last 3 Months Immunizations Name Administration Dates Next Due Hep B, adult 05/06/2024 Influenza injectable quadrivalent preservative f ree 03/20/2023 Influenza, seasonal, injectable, preservative fr ee 05/06/2024 Moderna Covid-19 Vaccine + 06/19/2022,07/21/19 Pfizer Covid-19 Vaccine 05/06/2024 Pneumococcal Conjugate PCV 20 03/20/2023 [facility] SARS-CoV-2 Vaccination 11/27/2020,2020 Tdap 11/06/2023 Social History Tobacco Use Types Packs/Day Years Used Date Smoking Tobacco: Never Passive Smoke Exposure: Never Smokeless Tobacco: Never Tobacco Cessation:Counseling Given: Not Answered Alcohol Use Standard Drinks/Week Comments Yes 0 (1 standard drink = 0.6 oz pur e alcohol) Comments No Sex and Gender Information Value Date Recorded Sex Assigned at Female 01/31/2023 9:55 AM EST Legal Sex Female 12:33 PM EDT Gender Identity Female 01/31/2023 9:55 AM EST Sexual Orientation Don't know 01/31/2023 9: 55 AM EST Last Filed Vital Signs Vital Sign Reading Time Taken Comments Blood Pressure 148/96 05/06/2024 3:32 PM EST Pulse 77 05/06/2024 3:32 PM EST Temperature 36.3 ??C (97.3 ??F) 01/27/2024 10:[address] Respiratory Rate 18 02/24/2024 4:58 PM EST Oxygen Saturation 97% 01/27/2024 10:29 AM EST Inhaled Oxygen Concentration - - Weight 87.4 kg (192 lb 9.6 oz) 04/20/2024 1:05 P M EST Height 167.6 cm (5' 6 ) 04/20/2024 1:05 PM EST Body Mass Index 31.09 04/20/2024 1:05 PM EST Plan of Treatment Upcoming Encounters Date Type Department Care Team (Late st Contact Info) Description 05/13/2024 3:30 PM EST Clinical Support [facility] [address] [place] [address] Kemi Sparks, RD [address] [place] [address] 06/10/2024 2:30 PM EDT Medication Management [facility] [address] [place], [place] [phone] Anyi Garcia, PharmD [address] [place] [address] Health Maintenance Due Date Last Done Comments Depression Screening 1980 SDOH Screening 1980 Diabetes: Foot Exam 1990 Alcohol/Substance Use Screening 1992 Mammogram 2020 Diabetes: Urine Protein Screening 03/21/2024 03/21/2023 Lipid Panel 03/21/2024 03/21/2023 Family Planning (PISQ) 05/20/2024 05/20/2023 Hepatitis B Vaccines (2 of 3 - 19+ 3-dose series) 06/03/2024 05/06/2024 Dental Oral Exam 06/17/2024 12/18/2023 Dental Prophylaxis 06/23/2024 12/23/2023 Diabetes: Hemoglobin A1C 11/03/2024 025, 01/12/2024, 11/06/2023, Additional history exists Dental X-Ray: Bitewings 12/18/2024 12/18/2023 Tobacco Screening 04/07/2025 04/07/2024 Eye Exam 07/16/2025 07/17/2023, 0407/2023, 07/17/2023, Additional history exists Pap Smear 05/20/2026 05/20/2023 Dental X-Ray: Full Mouth 12/18/2026 12/18/2023 Cervical Cancer Screening 05/20/2028 HPV/Cotest 05/20/2028 05/20/2023 Zoster Vaccines (1 of 2) 2030 DTaP/Tdap/Td Vaccines (2 - Td or Tdap) 11/05/2033 11/06/2023 RSV Patients and Patients Aged 60 years or older (1 - 1-dose 75+ series) 08/12/2055 Pneumococcal Vaccine: Pediatrics (0 to 5 Years) and At-Risk Patients (6 to 49) Years) Completed 03/20/2023 HIV Screening Completed 03/21/2023 Hepatitis C Screening Completed 03/21/2023 COVID-19 Vaccine Completed 05/06/2024, , 07/20/2021, Additional history exists Influenza Vaccine Completed 05/06/2024, 03/20/2023 HIB Vaccines Aged Out No longer eligi ble based on patient's age to complete this topic HPV Vaccines Aged Out No longer eligi ble based on patient's age to complete this topic Hepatitis A Vaccines Aged Out No long er eligible based on patient's age to complete this topic IPV Vaccines Aged Out No longer eligi ble based on patient's age to complete this topic Meningococcal Vaccine Aged Out No maksim duyen eligible based on patient's age to complete this topic RSV under 20 months Aged Out No longe r eligible based on patient's age to complete this topic Rotavirus Vaccines Aged Out No longer eligible based on patient's age to complete this topic Procedures Procedure Name Priority Date/Time Associated Diagnosis Comments POCT GLYCATED HEMOGLOBIN, TOTAL Routine 05/06/2024 4:25 PM EST Type 2 diabetes mellitus without complication, with long-term current use of insulin ([facility]) CASE PRESENTATION, DETAILED AND EXTENSIVE TREATMENT PLANNING Routine 04/07/2024 2:00 PM EST Periodontal disease COMPREHENSIVE PERIODONTAL EVALUATION - NEW OR ESTABLISHED PATIENT Routine 04/07/2024 2:00 PM EST Periodontal disease CASE PRESENTATION, DETAILED AND EXTENSIVE TREATMENT PLANNING Routine 03/10/2024 2:30 PM EST Periodontal disease LL PERIODONTAL SCALING AND ROOT PLANING - 4 OR MORE TEETH PER QUADRANT Routine 03/10/2024 2:30 PM EST Periodontal disease US EXTREMITY NON-VASCULAR Routine 02/26/2024 3:35 PM EST CASE PRESENTATION, DETAILED AND EXTENSIVE TREATMENT PLANNING Routine 02/11/2024 2:00 PM EST Periodontal disease LR PERIODONTAL SCALING AND ROOT PLANING - 4 OR MORE TEETH PER QUADRANT Routine 02/11/2024 2:00 PM EST Periodontal disease PROPHYLAXIS - ADULT Routine 12/23/2023 3 :00 PM EDT INTRAORAL - COMPLETE SERIES OF RADIOGRAPHIC IMAGES Routine 12/18/2023 2:30 PM EDT Periodontal disease Necrosis of dental pulp Dental caries COMPREHENSIVE ORAL EVALUATION - NEW OR ESTABLISHED PATIENT Routine 12/18/2023 2:30 PM EDT Periodontal disease Necrosis of dental pulp Dental caries HPV MRNA E6/E7 REFLEX TO HPV 16, 18/45 Routine 05/20/2023 4:23 PM EST PAP SMEAR Routine 05/20/2023 4:23 PM EST Cervical cancer screening ALBUMIN, RANDOM URINE W/CREATININE Routine 03/21/2023 10:50 AM EST HEPATITIS C AB W/REFL TO HCV RNA, QN, PCR Routine 03/21/2023 10:37 AM EST Encounter for health-related screening HIV 1/2 ANTIGEN/ANTIBODY, FOURTH GENERATION W/RFL Routine 03/21/2023 10:37 AM EST Encounter for health-related screening LIPID PANEL, STANDARD Routine 03/21/2023 10:37 AM EST Type 2 diabetes mellitus without complication, with long-term current use of insulin ([facility]) from Last 3 Months or Most Recently Relevant to Health Maintenance Results * (ABNORMAL) POCT A1C (05/06/2024 4:25 PM EST) Hemoglobin A1C 6.3(A) 4.0 - 6.0 % QC Media Lot # [id number] Lot# Expiration Date ,359 Blood 05/06/2024 4:25 PM EST Glenny Arreola MD POINT OF CARE TEST ENTER/EDIT ORDERABLES Final Result * US Extremity Non Vascular (02/26/2024 3:35 PM EST) Anatomical Region Laterality Modality Ultrasound 02/26/2024 3:35 PM EST Narrative 03/28/2024 7:32 PM EST ? [facility] ?[address] ?[place] [address] ? Ultrasound Report ? Signed ? Patient: Marquis Bee,Lebinia ?MR#: [id number] ?? [id number] ? : 1980 ?Acct:[id number] ? Age/Sex: 43 / F ?ADM Date: 02/26/24 ? Loc: HO.US ? Attending Dr: Roberto Lynn MD ? Ordering Physician: Roberto Lynn MD ?? Date of Service: 02/26/24 ?? Procedure(s): US extremity nonvascular ?? Accession Number(s): [id number] ? cc: Roberto Lynn MD; Yessica Ricketts MD ? EXAMINATION: ?? US SOFT TISSUES, RIGHT UPPER ARM ? CLINICAL INFORMATION: ?? Marking of skin for Nexplanon removal with skin marker. ? COMPARISON: ?? None available. ? TECHNIQUE: ?? Ultrasound images were obtained by the pickle sorter to indicate the area ?? of concern in the upper right arm. The pickle sorter marked ?? the Nexplanon implant as requested by referring physician. ? US/US extremity nonvascular ?? IMPRESSION: ?? Nexplanon implant in the upper right arm marked by the pickle sorter. ? Electronically signed by: ??Lavonne Small MD ??03/28/2024 07:28 PM EST ? Dictated By: ?Lavonne Small MD ? Signed By: ?<Electronically signed by Lavonne Small MD in OV> ? 03/28/241927 ? DD/ 1535 ? TD/TT: 02/26/246 ? Clerk Operator: ? Procedure Note Lillie Lomeli - 03/28/[address] [address] Ultrasound Report Signed Patient: Phyllis Paul#: [id number] : 1980Acct:[id number] Age/Sex: 43 / FADM Date: 02/26/24 Loc: HO.US Attending Dr: Roberto Lynn MD Ordering Physician: Roberto Lynn MD Date of Service: 02/26/24 Procedure(s): US extremity nonvascular Accession Number(s): [id number] cc: Roberto Lynn MD; Yessica Ricketts MD EXAMINATION: US SOFT TISSUES, RIGHT UPPER ARM CLINICAL INFORMATION: Marking of skin for Nexplanon removal with skin marker. COMPARISON: None available. TECHNIQUE: Ultrasound images were obtained by the pickle sorter to indicate the area of concern in the upper right arm. The pickle sorter marked the Nexplanon implant as requested by referring physician. US/US extremity nonvascular IMPRESSION: Nexplanon implant in the upper right arm marked by the pickle sorter. Electronically signed by: Lavonne Small MD 03/28/2024 07:28 PM EST Dictated By: Lavonne Small MD Signed By: <Electronically signed by Lavonne Small MD in OV> 03/28/241927 DD/ 34 TD/TT: 02/26/241535 Clerk Operator: [facility] External Provider IMG US PROCEDURES Edited Result - Final * HPV mRNA E6/E7 w/Reflex to HPV Genotypes 16, 18/45 (05/20/2023 4:23 PM EST) HPV nRNA E6/E7 Not Detected Not Detected [facility] Comment:Methodology: Transcr iption-Mediated AmplificationThis assay detects E6/E7 viral messenger RNA (mRNA) from 14high-risk HPV types (16,18,31,33,35,39,45,51,52,56,58,59,66,68).Cervical sources are required for HPV testing.If a vaginal source from a patient who has had atotal hysterectomy with removal of cervix wassubmitted, please contact the testing laboratoryfor alternative testing options.For additional information, please refer tohttp://education.Link To Media/faq/MJW917k5(This link if provided for information/educational purposes only.)THIS TEST WAS PERFORMED AT:[employer] [place] [place] [phone] CR MD HPV mRNA E6/E7 [facility] HPV 16 RNA [facility] HPV 18/45 RNA [facility] 05/20/2023 4:23 PM EST 05/21/2023 7:45 AM EST us Gallo Sanchez CNM LAB CYTOLOGY ORDERABLES F inal Result [facility] [address] [place] [phone] * Pap Smear (05/20/2023 4:23 PM EST) Swab Cervix uteri structure / Unknown 05/20/2023 4:23 PM EST 05/21/2023 7:45 AM EST Narrative [facility] - 06/02/2023 9:14 AM EDT ----- ------- Name: Phyllis Paul ? Age/Sex: 42/F ? : 1980 Unit#: [id number] ?? Attend Dr: GALLO SANCHEZ CNM ?Re05/20/23 ?Status: DEP REF ? Location: HO.CHCLNP ? Disch: ? ----- ------- SPEC : [id number] ? RECD: 05/21/23 ? STATUS: ??SOUT ? REQ NUM: [id number] ? PASTORA: 05/20/23 ? SUBM DR: GALLO SANCHEZ CNAlison ? ENTERED: ??05/21/23 ?SP TYPE: Pap Smr ?OTHR : ? ORDERED: ??Pap Smear ? Interpretation ?? Satisfactory for evaluation. ?? No endocervical cells seen. ?? Negative for intraepithelial lesion or malignancy. ?HPV mRNA E6/E7: ?NOT DETECTED ? This assay detects E6/E7 viral messenger RNA (mRNA) from 14 high-risk HPV types (16, 18, ?? 31, 33, 35, 39, 45, 51, 52, 56, 58, 59, 66, 68) ?? HPV testing performed by [facility], [place], [place]. ??See reference laboratory ?? portion of the EMR for entire report. ?Clinical Information LMP: Implantable control Previous PAP test: Unknown date/findings ? Material Received ?? ThinPrep-Cervical ----- ------- Signed (signature on file) PETER Skinner ([facility]) 06/02/23 0914 ? ----- ------- ? END OF REPORT ? us Gallo [facility] CYTOLOGY ORDERABLES F inal Result Performing Organization Address [facility] de Phone Number [facility] [address] [place] [address] [phone] * Albumin, Random Urine W/Creatinine (03/21/2023 10:50 AM EST) Creatinine, Urine 253.99 mg/dL [facility] Microalbumin Urine 70.0 mg/L [facility] Microalbum Creatinine Ratio Ur 27.5 <30 ug/mg cr [facility] Comment:Albumin/Creatinine R atio Reference Ranges: Normal: < 30 ug/mg creatinine Microalbuminuria: 30 - 300 ug/mg creatinineClinical Albuminuria: > 300 ug/mg creatinine 03/21/2023 10:5 0 AM EST 03/21/2023 2:25 PM EST us Yessica Ricketts MD LAB URINE ORDERABLES Final Re sult Performing Organization Address [facility] de Phone Number [facility] [address] [place] [phone] * Hepatitis C Antibody with Reflex to HCV, RNA, Quantitative, Real-Time PCR (03/21/2023 10:37 AM EST) Pathologist [facility] Hepatitis C Antibody Nonreactive Nonreactive [facility] Comment:Antibodies to HCV no t detected; does not exclude early acuteHCV infection. Blood Venous blood specimen / Unknown 03/21/2023 10:37 AM EST 03/21/2023 2:26 PM EST us Yessica Ricketts MD LAB BLOOD ORDERABLES Final Re sult Performing Organization Address [facility]/ZIP Co de Phone Number [facility] [address] [place] [phone] * HIV-1/2 Antigen and Antibodies, Fourth Generation, with Reflexes (03/21/2023 10:37 AM EST) Pathologist [facility] HIV AB/AG Nonreactive Nonreactive [facility] Comment:HIV-1 p24 Ag and/or HIV-1/HIV-2 Ab not detected.A test result that is nonreactive does not exclude thepossibility of exposure to or infection with HIV-1 and/orHIV-2. Nonreactive results in this assay for individualswith prior exposure to HIV-1 and/or HIV-2 may be due toantigen and antibody levels that are below the limit ofdetection of this assay.The [email or web address] HIV Ag/Ab Combo assay result andsupplemental assay results should be interpreted inconjunction with the patient's clinical presentation,history and other laboratory results. If the results areinconsistent with clinical evidence, additional testing issuggested to confirm the result. Blood Venous blood specimen / Unknown 03/21/2023 10:37 AM EST 03/21/2023 2:26 PM EST us Yessica Ricketts MD LAB BLOOD ORDERABLES Final Re sult Performing Organization Address [facility]/ZIP Co de Phone Number [facility] [address] [place] [phone] * Lipid Panel, Standard (03/21/2023 10:37 AM EST) Triglycerides 47 <150 mg/dL [facility] Comment:Desirable Triglyceri de: less than 150 mg/dLBorderline High Triglyceride 150-199 mg/dLHigh Triglyceride: 200-499 mg/dLVery High Triglyceride: greater than or equal to 5OO mg/dL Cholesterol 103 <200 mg/dL [facility] Comment:Desirable Cholestero l: less than 200 mg/dLBorderline High Cholesterol: 200-239 mg/dLHigh Cholesterol: greater than 239 mg/dL LDL Cholesterol Calculated 48 <100 mg/dL [facility] Comment:Desirable LDL: less than 100 mg/dLNear Optimal/Above Optimal LDL: 110- 129 mg/dLBorderline High LDL: 130-159 mg/dLHigh LDL: 160-189 mg/dLVery High LDL: greater than or equal to 190 mg/dL HDL Cholesterol 46 >40 mg/dL [facility] Comment:Desirable HDL: great er than 40 mg/dL Note: This HDL assay may give artificially low results in patients with liver disease. Blood Venous blood specimen / Unknown 03/21/2023 10:37 AM EST 03/21/2023 2:26 PM EST us Yessica Ricketts MD LAB BLOOD ORDERABLES Final Re sult [facility] [address] [place] [phone] from Last 3 Months or Most Recently Relevant to Health Maintenance Insurance [employer] [facility] F[facility] [employer]-[facility] MEDICAID LIMITED ADULT DENTAL - HSN FULL (MEDICAID) Care Teams Heater Operator Helper Relationship Specialty Start Date End Date Yessica Ricketts MD [address] [place] [address] PCP - General Family Medicine 03/20/23 Anyi Garcia PharmD [address] [place] [address] Pharmacist Internal Medicine 05/06/24
--- OUTSIDE RECORDS SUMMARY | 2024-05-07 14:47 | XMS_ITS | Encounter Summary ---
Author Organization [employer] Address [address] [facility] [address] [place] [address] Care Team Providers Care Face Painter Name Role Phone Yessica Ricketts MD Primary Care Provider [phone] Anyi Garcia PharmD Unavailable [phone] Reason for Visit * Reason Onset Date Comments New Patient 12/20/2022 Encounter Details Date Type Department Care Team (Late Contact Info) Description 12/20/2022 Telephone [facility] [address] [place], [place] [phone] Terrell Hernadez MD [address] [place], [place] [phone] New Patient Social History Tobacco Use Types Packs/Day Years Used Date Smoking Tobacco: Never Assessed Comments Unknown Sex and Gender Information Value Date Recorded Sex Assigned at Female 01/31/2023 9:55 AM EST Legal Sex Female 12:33 PM EDT Gender Identity Female 01/31/2023 9:55 AM EST Sexual Orientation Don't know 01/31/2023 9: 55 AM EST documented as of this encounter Miscellaneous Notes * Telephone Encounter - Mendez Mcconnell - 12/20/2022 1:07 PM EDT Pt has been transfer over to wait list for [facility] 12/20/2022 documented in this encounter Plan of Treatment Upcoming Encounters Date Type Department Care Team (Late Contact Info) Description 05/13/2024 3:30 PM EST Clinical Support [facility] DIABETES/NTRN [address] [place], [place] [phone] Kemi [address]ks [address] [place] [address] 06/10/2024 2:30 PM EDT Medication Management [facility] MED & PEDS [address] [place] [address] Anyi Garcia, Carl [address] [place] [address] documented as of this encounter Visit Diagnoses Not on filedocumented in this encounter Care Teams Face Painter Relationship Specialty Start Date End Date Yessica Ricketts MD [address] [place] [phone] PCP - General Family Medicine 03/20/23 Anyi Garcia, RobbiD [address] [place] [phone] Pharmacist Internal Medicine 05/06/24 documented as of this encounter
[2024-05-07 18:15] LABS: Alanine Aminotransferase 14 U/L (0-31); Albumin Level 4.2 g/dL (3.5-5.0); Alkaline Phosphatase 110 U/L (39-117); Anion Gap 11 (12-20); Aspartate Amino Transferase 21 U/L (5-31); Bilirubin Total 0.4 mg/dL (0.0-1.0); Blood Urea Nitrogen 16 mg/dL (9-16); Calcium 9.4 mg/dL (8.4-10.2); Carbon Dioxide 24 mmol/L (22-29); Chloride 107 mmol/L (96-108); Cholesterol 122 mg/dL (<200); Estimated Glomerular Filt Rate > 60; Glucose Random 92 mg/dL (60-115); HDL Cholesterol 46 mg/dL (>40); LDL Cholesterol Calculated 66 mg/dL (<100); Potassium 3.6 mmol/L (3.3-5.1); Sodium 138 mmol/L (135-145); Total Protein 8.1 g/dL (6.5-8.0); Triglycerides 54 mg/dL (<150)
[2024-05-07 18:19] LABS: Creatinine Urine 128.94 mg/dL
[2024-05-07 18:34] LABS: Vitamin B12 741 pg/mL (200-900)
== END 2024-05-07 14:45 | disposition home or self-care (01) ==
LOC: HO.CHCLDS 14:44
PROVIDERS: Visit Provider Pediatrics
DX: E11.9 Type 2 diabetes mellitus without complications (principal); Z79.4 Long term (current) use of insulin
CPT/HCPCS: 36415; 80053; 80061; 82043; 82570; 82607

== ENCOUNTER 2024-10-29 14:56 | Outpatient (REF) | payer MEDICAID, OTHER, SELFPAY ==
--- OUTSIDE RECORDS SUMMARY | 2024-10-29 14:57 | XMS_ITS | Encounter Summary ---
Author Organization [employer] Address [address] [facility] [address] [place] [address] Care Team Providers Care Audiology Assistant Name Role Phone Yessica Ricketts MD Primary Care Provider [phone] Anyi Garcia PharmD Unavailable [phone] Reason for Visit * Reason Comments Med Refill Encounter Details Date Type Department Care Team ([facility] st Contact Info) Description 09/30/2023 Refill [facility] [address] [place], [place] [phone] Debbie Luna MD [address] [place], [place] [phone] Social History Tobacco Use Types Packs/Day Years [...] Care Team (Late st Contact Info) Description 11/11/2024 3:00 PM EDT Medication Management [facility] MED & PEDS [address] [place] [address] Anyi Garcia, Carl [address] [place] [address] documented as of this encounter Visit Diagnoses Not on filedocumented in this encounter Care Teams Audiology Assistant Relationship Specialty Start Date End Date Yessica Ricketts MD [address] [place] [phone] PCP - General Family Medicine 03/20/23 Anyi Garcia PharmD [address] [place] [phone] Pharmacist Internal Medicine 05/06/24 documented as of this encounter
== END 2024-10-29 14:57 | disposition home or self-care (01) ==
LOC: HO.CHCLDS 14:56
PROVIDERS: Visit Provider Family Medicine
DX: Z32.00 Encounter for pregnancy test, result unknown (principal)
CPT/HCPCS: 36415; 84702

== ENCOUNTER 2024-11-09 16:27 | Outpatient (REF) | payer MEDICAID, OTHER, SELFPAY ==
--- OUTSIDE RECORDS SUMMARY | 2024-11-09 17:42 | XMS_ITS | Encounter Summary ---
Author Organization [employer] Address [address] [facility] [address] [place] [address] Care Team Providers Care Sales Associate Fishing Name Role Phone Yessica Ricketts MD Primary Care Provider [phone] Anyi Garcia PharmD Unavailable [phone] Reason for Visit * Reason Comments Med Refill Encounter Details Date Type Department Care Team ([facility] st Contact Info) Description 09/30/2023 Refill [facility] [address] [place], [place] [phone] Debbie Luna MD [address] [place], [place] [phone] Social History Tobacco Use Types Packs/Day Years [...] Description 11/11/2024 3:00 PM EDT Medication Management [facility] MED & PEDS [address] [place] [address] Anyi Garcia, Carl [address] [place] [address] documented as of this encounter Visit Diagnoses Not on filedocumented in this encounter Care Teams Sales Associate Fishing Relationship Specialty Start Date End Date Yessica Ricketts MD [address] [place] [phone] PCP - General Family Medicine 03/20/23 Anyi Garcia PharmD [address] [place] [phone] Pharmacist Internal Medicine 05/06/24 documented as of this encounter
[2024-11-09 18:22] LABS: MANUAL DIFF FLAG NO
[2024-11-09 19:05] LABS: Hematocrit 37.5 % (37.0-47.0); Hemoglobin 12.5 g/dl (12.0-16.0); Imm Gran Abs Auto 0.03 X10*3/uL (0.00-0.03); Imm Gran Pct Auto 0.3 % (0.0-0.4); Lymphocytes Absolute Auto 2.9 X10*3/uL (1.2-4.9); Mean Corpuscular HGB Conc 33.3 g/dl (31.0-35.0); Mean Corpuscular Hemoglobin 28.0 pg (27.0-33.0); Mean Corpuscular Volume 83.9 fL (80.0-98.0); NRBC Abs Auto 0.000 X10*3/uL (0.0-0.012); NRBC Pct Auto 0.0 /100WBC (0.0-0.2); Platelet Count 329 X10*3/uL (160-400); Red Blood Count 4.47 X10*6/uL (4.20-5.50); White Blood Count 11.4 X10*3/uL (4.8-10.8)
[2024-11-09 19:15] LABS: Total Protein Urine Random < 7 mg/dL (<12)
[2024-11-09 19:17] LABS: Alanine Aminotransferase 14 U/L (0-31); Albumin Level 4.4 g/dL (3.5-5.0); Alkaline Phosphatase 111 U/L (39-117); Anion Gap 13 (12-20); Aspartate Amino Transferase 18 U/L (5-31); Blood Urea Nitrogen 15 mg/dL (9-16); Calcium 9.8 mg/dL (8.4-10.2); Carbon Dioxide 23 mmol/L (22-29); Chloride 105 mmol/L (96-108); Estimated Glomerular Filt Rate > 60; Potassium 4.0 mmol/L (3.3-5.1); Sodium 137 mmol/L (135-145); Total Protein 7.5 g/dL (6.5-8.0); Uric Acid 3.8 mg/dL (2.4-5.7)
== END 2024-11-09 16:28 | disposition home or self-care (01) ==
LOC: HO.CHCLDS 16:27
PROVIDERS: Visit Provider Internal Medicine
DX: E11.9 Type 2 diabetes mellitus without complications (principal); I10 Essential (primary) hypertension; Z79.4 Long term (current) use of insulin
CPT/HCPCS: 36415; 80053; 82570; 84156; 84550; 85025